=== PATIENT | female | born 1955 | race Caucasian/White ===

== ENCOUNTER 2016-07-31 09:42 | Day surgery (SDC) | payer BC ==
[~2016-07-31] VITALS: Ht 165.1 cm; Wt 136.4 kg
[2016-07-31 10:16] LABS: BASOPHILS 0.1 % (0.0-2.0); EOSINOPHILS 2.6 % (0-7); HEMATOCRIT 51.6 % (36.0-48.0); HEMOGLOBIN 16.1 g/dL (12-16); IMMATURE GRANULOCYTES 0.3 % (0-5); LYMPHOCYTES 25.7 % (15-50); MCH 26.6 pg (26.0-34.0); MCHC 31.2 g/dL (31.0-37.0); MCV 85.3 fL (80.0-100.0); MEAN PLATELET VOLUME 12.1 fL (7.4-10.4); NEUTROPHILS 61.3 % (40-80); PLATELET COUNT 213 10x3/uL (130-400); RBC 6.05 10x6/uL (4.00-5.40); RDW 14.9 % (11.5-14.5); WBC 9.6 10x3/uL (4.8-10.8)
[2016-07-31] MEDS ORDERED: BAYER CHEWABLE81 MG PO (10:27)
[2016-07-31] MEDS ORDERED: HYDROCHLOROTH12.5 M1 PO (10:28)
[2016-07-31] MEDS ORDERED: LYRICA75 MG PO (10:29)
[2016-07-31] MEDS ORDERED: ZOCOR20 MG PO (10:29)
[2016-07-31] MEDS ORDERED: ACCUPRIL20 MG PO (10:29)
[2016-07-31] MEDS ORDERED: CELEXA20 MG PO (10:29)
[2016-07-31] MEDS ORDERED: LUNESTA3 MG PO (10:30)
[2016-07-31] MEDS ORDERED: METOPROLOL TART50 MG PO (10:30)
[2016-07-31 10:34] LABS: ANION GAP 13.1 mmol/L (8-16); CALCIUM 9.1 mg/dL (8.5-10.1); CARBON DIOXIDE 32.1 mmol/L (21.0-32.0); CREATININE - SERUM 0.9 mg/dL (0.6-1.3); POTASSIUM - SERUM 4.2 mmol/L (3.5-5.1)
[2016-07-31 10:37] VITALS: BP 109/68; Ht 165.1 cm; Wt 136.4 kg
--- NOTE | 2016-07-31 15:24 | NUR ---
1445 IV DC WITH CATHER TIP INTACT
--- NOTE | 2016-08-04 13:02 | OP ---
PATIENT NAME: ROSEMARIE MONTES MEDICAL RECORD: [id number] :51 LOCATION:[facility] ADMISSION DATE: SURGEON: YUE RANGEL DO DATE OF OPERATION: 07/31/2016 PROCEDURE: Colonoscopy. SCOPE: Olympus video pediatric colonoscope. MEDICATIONS: Propofol 290 mg IV per anesthesia. INDICATIONS FOR PROCEDURE: Personal history of colon polyps and screening colonoscopy. FINDINGS: Informed consent was given. The patient was made comfortable with the above medication. After reaching an adequate level of sedation by slow IV push, the patient was placed on her left side. A digital rectal examination was performed and some small external hemorrhoids were present. The endoscope was then advanced under direct visualization through the rectum to the cecum. The scope was then slowly withdrawn, mucosa was carefully examined. The prep was good in the mid to the left side of colon, but fair in the right side, making visualization somewhat difficult and requiring ____ of washing. There were 5 polyps total visualized on this examination, 4 in the descending colon and 1 was in the sigmoid colon. All polyps measured approximately 3-6 mm in size and were benign appearing, sessile polyps. All were removed using hot forceps, a completely retrieved. There were some diverticula of mild severity noted in the sigmoid colon. Retroflexion was performed in the rectum and this showed a normal view. The endoscope was then withdrawn from the patient. The patient tolerated the procedure well and there were no complications. IMPRESSIONS: 1. Five benign appearing sessile polyps located in the descending and sigmoid colon. All were removed with hot forceps. 2. Mild diverticulosis of the sigmoid colon. 3. Small external hemorrhoids. PLAN AND RECOMMENDATIONS: 1. Discharge home when recovery parameters are met. 2. Continue current medications. 3. High fiber diet. 4. Consider supplementation of fiber such as Metamucil 1-2 tablespoons daily. 5. Recall colonoscopy depending on pathology. At this time, I anticipate this to be 3 years. TRANSINT:[id number] Voice Confirmation ID: [id number] DOCUMENT ID: [id number] YUE RANGEL DO at 1302 CC: [id number] DICTATION DATE: 07/31/16 1350 [employer]IL PLACER: 07/31/16 1426 [facility] [place] 07/31/[address] [place] [id number]
== END 2016-07-31 15:00 | disposition home or self-care (01) ==
LOC: D.OPS 09:42
PROVIDERS: Anesthesiology
DX: Z12.11 Encounter for screening for malignant neoplasm of colon (principal); D12.4 Benign neoplasm of descending colon; D12.5 Benign neoplasm of sigmoid colon; I25.10 Atherosclerotic heart disease of native coronary artery without angina pectoris; I10 Essential (primary) hypertension; Z95.5 Presence of coronary angioplasty implant and graft; Z95.1 Presence of aortocoronary bypass graft; Z68.43 Body mass index [BMI] 50.0-59.9, adult